=== PATIENT | female | born 1990 | race Caucasian/White ===

== ENCOUNTER 2021-08-31 17:20 | Emergency (ER) | payer OTHER ==
[~2021-08-31 17:20] MED LIST: IMITREX50 MG PO; ZOFRAN8 MG PO
[2021-08-31 20:48] LABS: BASOPHIL 0.4 % (0-2); EOSINOPHIL 0.1 % (0-5); HCT 38.6 % (37.0-47.0); HGB 13.2 g/dl (12.5-16.0); MCHC 34.2 g/dL (32.0-36.0); MCV 90.6 fL (78.0-100.0); MONOCYTE 5.2 % (0-12); MPV 10.2 fL (6.0-9.5); NEUTROPHIL 73.1 % (41-80); NRBC 0; PLT 242 K/uL (150-400); RBC 4.26 M/uL (4.20-5.40); RDW 12.3 % (11.5-14.0); WBC 9.4 K/uL (4.0-10.5)
[2021-08-31 21:05] LABS: ALBUMIN 3.7 g/dL (3.4-5.0); BILIRUBIN - TOTAL 0.4 mg/dL (0.2-1.0); BUN/CREAT RATIO (CALC) 11.5 RATIO; CREATININE 0.87 mg/dL (0.51-0.95); GLOBULIN (CALCULATION) 3.1 g/dL; POTASSIUM 3.6 mmol/L (3.5-5.1); TOTAL PROTEIN 6.8 g/dL (6.4-8.2)
== END 2021-08-31 21:43 | disposition home or self-care (01) ==
LOC: FER 17:20
PROVIDERS: Internal Medicine
DX: R14.2 Eructation (principal); Z88.8 Allergy status to other drugs, medicaments and biological substances
CPT/HCPCS: 36415; 80053; 83690; 85025; C9113; J1630

== ENCOUNTER → 2021-10-23 | Day surgery (SDC) | payer OTHER ==
[~2021-10-23] VITALS: Ht 167.6 cm; Wt 61.7 kg
[~2021-10-23] MED LIST changes: +ACETAMINOPHEN500 M1 PO; +BACLOFEN10 MG PO; +CLARITIN10 MG PO; +DEPO-ESTRAD5 MG/1 ML IM; +DICYCLOMINE HCL20 MG PO; +FAMOTIDINE20 MG PO; +FLUTICASONE PRO16 GM; +PANTOPRAZOLE SO40 MG PO
[2021-10-23 10:47] LABS: HCG (URINE) SCREEN NEGATIVE (NEGATIVE)
== END | disposition home or self-care (01) ==
LOC: FAS 10:35
PROVIDERS: Anesthesiology
DX: K21.00 Gastro-esophageal reflux disease with esophagitis, without bleeding (principal); K29.50 Unspecified chronic gastritis without bleeding; R06.6 Hiccough; Z88.6 Allergy status to analgesic agent; Z79.899 Other long term (current) drug therapy; Z80.0 Family history of malignant neoplasm of digestive organs
CPT/HCPCS: 84703; J2704; J7120